=== PATIENT | male | born 1950 | race American Indian/Alaskan Native ===

== ENCOUNTER 2017-08-12 02:36 | Inpatient (IN) | payer OTHER ==
[~2017-08-12] VITALS: Ht 180.3 cm; Wt 96.0 kg
[2017-08-12 03:07] LABS: Eosinophils # (auto) 0 uL; Eosinophils % (auto) 0.1 % (0.0-7.0); Hematocrit 41.3 % (41.0-53.0); Lymphocytes # (auto) 0.6 uL; Mean Corpuscular Hemoglobin 25.6 pg (28.0-32.0)
[2017-08-12 03:08] LABS: Basophils # (auto) 0 uL; Basophils % (auto) 0.3 % (0.0-2.0); Hemoglobin 13.5 g/dL (13.5-17.5); Lymphocytes % (auto) 3.2 % (10.0-50.0); Mean Corpuscular Hgb Conc. 32.7 g/dL (32.0-36.0); Mean Corpuscular Volume 78.3 fL (80.0-100.0); Monocytes # (auto) 1.6 uL; Neutrophils # (auto) 15.7 uL; Neutrophils % (auto) 87.4 % (37.0-80.0); Platelet Count (auto) 158 10^3/uL (140-450); Red Blood Cells 5.27 10^6/uL (4.5-5.90); Red Cell Distribution Width 17.5 % (11.8-14.3); White Blood Cell 17.9 10^3/uL (4.4-10.8)
[2017-08-12 03:22] LABS: INR 1.15 (0.9-1.15); Partial Thromboplastin Time 31.4 sec (22.64-33.71); Prothrombin Time 12.5 sec (9.37-12.3)
[2017-08-12 03:25] LABS: Albumin 3.7 g/dL (3.4-5.0); BUN/Creatinine Ratio 13.6; Calcium 8.6 mg/dL (8.5-10.1); Magnesium 2.1 mg/dL (1.6-2.6); Potassium 3.2 mmol/L (3.5-5.1)
[2017-08-12 03:30] LABS: Bilirubin, Total 1.8 mg/dL (0.2-1.0); Total Protein 7.9 g/dL (6.4-8.2)
[2017-08-12] MEDS ORDERED: SODIUM CHLORIDE 0.9% 250 ML IV ONE (06:30)
[2017-08-12] MEDS ORDERED: SODIUM CHLORIDE 0.9% 1,000 ML IV ONE (06:30)
[2017-08-12] MEDS ORDERED: POTASSIUM CHL 10% (20 MEQ/15ML) 15ml ORAL SOLN PO ONE (07:45)
[2017-08-12] MEDS ORDERED: cefTRIAXone 1GM/10ml IVPUSH 10 ML IV ONE (07:45)
[2017-08-12] MEDS ORDERED: HYDROcodone-ACET 10/325MG TAB PO ONE (10:30)
[2017-08-12] MEDS ORDERED: NITROGLYCERIN 0.4 MG SL TAB SL PRN (10:30)
[2017-08-12 12:55] VITALS: BP 110/71
[2017-08-12] MEDS ORDERED: DEXTROSE (50%) 50ML SYRG IV PRN (14:00)
[2017-08-12] MEDS ORDERED: METF-370 PO (14:17)
[2017-08-12] MEDS ORDERED: INSR100KIT IV (14:17)
[2017-08-12 16:52] VITALS: BP 104/63
[2017-08-12] MEDS: ACCU-CHEK COMFORT CURVE STRIP VI SCH ×2 (16:52→22:10)
[2017-08-12] MEDS: InsuLIN REG 1unit/0.01ml Soln (100units/ml) SC SCH ×2 (16:52→22:00)
[2017-08-12 21:20] VITALS: BP 102/61
[2017-08-12] MEDS: MORPHINE SULFATE 4 MG/ML SYR/VIAL IV PRN (21:22)
[2017-08-12 22:41] VITALS: BP 120/69
[2017-08-12] MEDS ORDERED: ENOXAPARIN SOD 100 MG/1 ML SYRINGE SC ONE (23:45)
[2017-08-13] VITALS (8 sets, daily range): BP systolic 102–142; BP diastolic 64–100
[2017-08-13] MEDS: MORPHINE SULFATE 4 MG/ML SYR/VIAL IV PRN (02:14)
[2017-08-13] MEDS: InsuLIN REG 1unit/0.01ml Soln (100units/ml) SC SCH ×4 (06:42→22:00)
[2017-08-13] MEDS: ACCU-CHEK COMFORT CURVE STRIP VI SCH ×4 (06:42→22:14)
[2017-08-13] MEDS: HYDROcodone-ACET 10/325MG TAB PO PRN (07:32)
[2017-08-13] MEDS ORDERED: ADENOSINE 84 MG in GIVE UN-DILUTED 0 ML IV STA (08:47)
[2017-08-13 09:14] LABS: Albumin 3.4 g/dL (3.4-5.0); BUN/Creatinine Ratio 16.7; Bilirubin, Total 1.9 mg/dL (0.2-1.0); Calcium 8.1 mg/dL (8.5-10.1); Potassium 4.3 mmol/L (3.5-5.1); Total Protein 7.9 g/dL (6.4-8.2)
[2017-08-13] MEDS: SOD CHL 0.45% 1,000 ML IV SCH ×2 (09:40→22:59)
[2017-08-13] MEDS: AZITHROMYCIN 250 MG TAB PO SCH (10:08)
[2017-08-13] MEDS: ENOXAPARIN SOD 100 MG/1 ML SYRINGE SC SCH ×2 (10:08→22:13)
[2017-08-13] MEDS: cefTRIAXone 1GM/10ml IVPUSH 10 ML IV SCH (10:08)
[2017-08-13] MEDS ORDERED: ACETAMINOPHEN 325 MG TAB PO PRN (12:45)
[2017-08-14 04:41] VITALS: BP 111/68
[2017-08-14] MEDS: SOD CHL 0.45% 1,000 ML IV SCH ×2 (05:30→19:02)
[2017-08-14] MEDS: InsuLIN REG 1unit/0.01ml Soln (100units/ml) SC SCH ×4 (06:11→22:00)
[2017-08-14] MEDS: ACCU-CHEK COMFORT CURVE STRIP VI SCH ×4 (06:12→22:23)
[2017-08-14 06:24] LABS: Basophils # (auto) 0.1 uL; Basophils % (auto) 0.7 % (0.0-2.0); Eosinophils # (auto) 0.2 uL; Eosinophils % (auto) 2.1 % (0.0-7.0); Hematocrit 33.3 % (41.0-53.0); Lymphocytes # (auto) 1.4 uL; Lymphocytes % (auto) 13.4 % (10.0-50.0); Mean Corpuscular Hgb Conc. 33.1 g/dL (32.0-36.0); Mean Corpuscular Volume 78.5 fL (80.0-100.0); Monocytes # (auto) 1.2 uL; Monocytes % (auto) 11.6 % (0.0-12.0); Neutrophils # (auto) 7.5 uL; Neutrophils % (auto) 72.2 % (37.0-80.0); Platelet Count (auto) 116 10^3/uL (140-450); Red Blood Cells 4.24 10^6/uL (4.5-5.90); Red Cell Distribution Width 17.1 % (11.8-14.3); White Blood Cell 10.4 10^3/uL (4.4-10.8)
[2017-08-14 06:40] LABS: BUN/Creatinine Ratio 21.9; Calcium 7.3 mg/dL (8.5-10.1); Potassium 3.8 mmol/L (3.5-5.1)
[2017-08-14 09:00] VITALS: BP 106/65
[2017-08-14] MEDS: cefTRIAXone 1GM/10ml IVPUSH 10 ML IV SCH (09:00)
[2017-08-14 09:17] VITALS: BP 123/69
[2017-08-14] MEDS: AZITHROMYCIN 250 MG TAB PO SCH (11:03)
[2017-08-14] MEDS: ENOXAPARIN SOD 100 MG/1 ML SYRINGE SC SCH ×2 (11:03→22:19)
[2017-08-14 13:00] VITALS: BP 117/71
[2017-08-14 16:46] VITALS: BP 110/63
[2017-08-14 22:00] VITALS: BP 124/78
[2017-08-15 05:00] VITALS: BP 145/76
[2017-08-15] MEDS: InsuLIN REG 1unit/0.01ml Soln (100units/ml) SC SCH ×4 (06:15→21:54)
[2017-08-15] MEDS: ACCU-CHEK COMFORT CURVE STRIP VI SCH ×4 (06:15→21:54)
[2017-08-15] MEDS: SOD CHL 0.45% 1,000 ML IV SCH (06:16)
[2017-08-15 08:00] VITALS: BP 94/76
[2017-08-15] MEDS: cefTRIAXone 1GM/10ml IVPUSH 10 ML IV SCH (09:11)
[2017-08-15] MEDS: AZITHROMYCIN 250 MG TAB PO SCH (09:11)
[2017-08-15] MEDS: ENOXAPARIN SOD 100 MG/1 ML SYRINGE SC SCH ×2 (09:12→22:05)
[2017-08-15 12:00] VITALS: BP 119/63
[2017-08-15 17:00] VITALS: BP 113/76
[2017-08-15 21:52] VITALS: BP 117/70
[2017-08-15] MEDS: HYDROcodone-ACET 10/325MG TAB PO PRN (22:04)
[2017-08-16 05:22] VITALS: BP 124/95
[2017-08-16] MEDS: InsuLIN REG 1unit/0.01ml Soln (100units/ml) SC SCH ×4 (07:00→21:53)
[2017-08-16] MEDS: ACCU-CHEK COMFORT CURVE STRIP VI SCH ×4 (07:10→21:53)
[2017-08-16] MEDS: SOD CHL 0.45% 1,000 ML IV SCH (07:12)
[2017-08-16] MEDS: HYDROcodone-ACET 10/325MG TAB PO PRN ×4 (07:57→18:55)
[2017-08-16 08:42] VITALS: BP 130/69
[2017-08-16] MEDS: AZITHROMYCIN 250 MG TAB PO SCH (09:37)
[2017-08-16] MEDS: ENOXAPARIN SOD 100 MG/1 ML SYRINGE SC SCH ×2 (09:37→21:53)
[2017-08-16] MEDS: cefTRIAXone 1GM/10ml IVPUSH 10 ML IV SCH (09:37)
[2017-08-16] MEDS: MORPHINE SULFATE 4 MG/ML SYR/VIAL IV PRN (11:25)
[2017-08-16 12:58] LABS: BUN/Creatinine Ratio 13.8; Calcium 8.9 mg/dL (8.5-10.1); Potassium 3.9 mmol/L (3.5-5.1)
[2017-08-16 13:00] VITALS: BP 120/70
[2017-08-16 13:03] LABS: Basophils # (auto) 0.1 uL; Monocytes # (auto) 0.3 uL; Nucleated Red Blood Cells % 0.1 %; Red Cell Distribution Width 17.5 % (11.8-14.3)
[2017-08-16 13:05] LABS: Basophils % (auto) 0.7 % (0.0-2.0); Eosinophils # (auto) 0.1 uL; Eosinophils % (auto) 1.2 % (0.0-7.0); Hematocrit 40.5 % (41.0-53.0); Hemoglobin 13.5 g/dL (13.5-17.5); Lymphocytes # (auto) 0.4 uL; Lymphocytes % (auto) 4.4 % (10.0-50.0); Mean Corpuscular Hemoglobin 25.9 pg (28.0-32.0); Mean Corpuscular Hgb Conc. 33.2 g/dL (32.0-36.0); Monocytes % (auto) 3.1 % (0.0-12.0); Neutrophils # (auto) 9.1 uL; Neutrophils % (auto) 90.6 % (37.0-80.0); Platelet Count (auto) 190 10^3/uL (140-450); Red Blood Cells 5.19 10^6/uL (4.5-5.90)
[2017-08-16 16:57] VITALS: BP 128/76
[2017-08-16] MEDS ORDERED: FUROSEMIDE 40 MG/4 ML VIAL IV ONE (17:00)
[2017-08-16 22:00] VITALS: BP 115/58
[2017-08-17] MEDS: MORPHINE SULFATE 4 MG/ML SYR/VIAL IV PRN ×2 (04:40→20:55)
[2017-08-17 05:30] VITALS: BP 97/72
[2017-08-17] MEDS: ACCU-CHEK COMFORT CURVE STRIP VI SCH ×4 (06:31→20:55)
[2017-08-17] MEDS: InsuLIN REG 1unit/0.01ml Soln (100units/ml) SC SCH ×4 (06:32→21:06)
[2017-08-17 07:46] LABS: BUN/Creatinine Ratio 14.6; Calcium 8.4 mg/dL (8.5-10.1)
[2017-08-17 09:00] VITALS: BP 117/108
[2017-08-17] MEDS: AZITHROMYCIN 250 MG TAB PO SCH (09:21)
[2017-08-17] MEDS: ENOXAPARIN SOD 100 MG/1 ML SYRINGE SC SCH ×2 (09:21→20:55)
[2017-08-17] MEDS: cefTRIAXone 1GM/10ml IVPUSH 10 ML IV SCH (09:21)
[2017-08-17 13:00] VITALS: BP 114/70
[2017-08-17 14:56] LABS: Urine Bacteria NONE SEEN /hpf (None Seen); Urine Blood Negative /uL (Negative); Urine Specific Gravity 1.015 (1.001-1.035); Urine WBC <1 /hpf (0 - 3)
[2017-08-17 17:00] VITALS: BP 103/65
[2017-08-17 22:00] VITALS: BP 120/65
[2017-08-18 05:00] VITALS: BP 99/72
[2017-08-18] MEDS: ACCU-CHEK COMFORT CURVE STRIP VI SCH ×4 (06:22→21:47)
[2017-08-18] MEDS: InsuLIN REG 1unit/0.01ml Soln (100units/ml) SC SCH ×4 (06:22→22:00)
[2017-08-18 09:00] VITALS: BP 141/70
[2017-08-18] MEDS: cefTRIAXone 1GM/10ml IVPUSH 10 ML IV SCH (09:27)
[2017-08-18] MEDS: AZITHROMYCIN 250 MG TAB PO SCH (09:27)
[2017-08-18] MEDS: ENOXAPARIN SOD 100 MG/1 ML SYRINGE SC SCH ×2 (09:28→21:47)
[2017-08-18 13:00] VITALS: BP 126/76
[2017-08-18 17:00] VITALS: BP 113/69
[2017-08-18 22:00] VITALS: BP 120/76
[2017-08-18] MEDS: MORPHINE SULFATE 4 MG/ML SYR/VIAL IV PRN (22:00)
[2017-08-19 05:00] VITALS: BP 116/76
[2017-08-19] MEDS: ACCU-CHEK COMFORT CURVE STRIP VI SCH ×4 (06:13→21:50)
[2017-08-19] MEDS: InsuLIN REG 1unit/0.01ml Soln (100units/ml) SC SCH ×4 (06:23→21:54)
[2017-08-19 09:08] VITALS: BP 117/70
[2017-08-19] MEDS: cefTRIAXone 1GM/10ml IVPUSH 10 ML IV SCH (09:48)
[2017-08-19] MEDS: AZITHROMYCIN 250 MG TAB PO SCH (09:48)
[2017-08-19 12:00] VITALS: BP 139/81
[2017-08-19] MEDS: ENOXAPARIN SOD 100 MG/1 ML SYRINGE SC SCH ×2 (12:01→21:49)
[2017-08-19 15:00] VITALS: BP 130/77
[2017-08-19] MEDS: MORPHINE SULFATE 4 MG/ML SYR/VIAL IV PRN (17:11)
[2017-08-19 22:00] VITALS: BP 119/96
[2017-08-20 05:17] VITALS: BP 120/77
[2017-08-20] MEDS: ACCU-CHEK COMFORT CURVE STRIP VI SCH ×3 (06:32→17:00)
[2017-08-20] MEDS: InsuLIN REG 1unit/0.01ml Soln (100units/ml) SC SCH ×3 (06:34→17:00)
[2017-08-20 09:08] VITALS: BP 103/71
[2017-08-20] MEDS: cefTRIAXone 1GM/10ml IVPUSH 10 ML IV SCH (09:13)
[2017-08-20] MEDS: AZITHROMYCIN 250 MG TAB PO SCH (09:27)
[2017-08-20] MEDS: ENOXAPARIN SOD 100 MG/1 ML SYRINGE SC SCH (09:27)
[2017-08-20 12:00] VITALS: BP 128/74
[2017-08-20 14:54] VITALS: BP 130/69
== END 2017-08-20 20:10 | DRG 280 ==
LOC: ER 02:38 → EAST 02:39 → EEVIPCON 02:39 → TELE-E-ADS 19:21 → EAST 08-17 23:57 → TELE-E-ADS 08-19 00:40
PROVIDERS: ADMIT Internal Medicine; ATTEND Internal Medicine
DX: I21.4 Non-ST elevation (NSTEMI) myocardial infarction (principal); J18.9 Pneumonia, unspecified organism; N17.0 Acute kidney failure with tubular necrosis; I11.0 Hypertensive heart disease with heart failure; I50.9 Heart failure, unspecified; E11.9 Type 2 diabetes mellitus without complications; J44.0 Chronic obstructive pulmonary disease with (acute) lower respiratory infection; I25.5 Ischemic cardiomyopathy; Z86.73 Personal history of transient ischemic attack (TIA), and cerebral infarction without residual deficits; I25.2 Old myocardial infarction; Z79.4 Long term (current) use of insulin; Z82.3 Family history of stroke; Z82.49 Family history of ischemic heart disease and other diseases of the circulatory system; Z95.1 Presence of aortocoronary bypass graft; Z83.3 Family history of diabetes mellitus; Z95.0 Presence of cardiac pacemaker
CPT/HCPCS: 36415; 71045; 71046; 71250; 78452; 80048; 80053; 81001; 82962; 83605; 83735; 83880; 84443; 84484; 85025; 85610; 85730; 87040; 87086; 93005; 93017; 96361; 96374; 99291; J0153; J1815